=== PATIENT | female | born 1955 | race Caucasian/White ===

== ENCOUNTER 2024-03-24 05:49 | Observation (INO) ==
[~2024-03-24 05:49] MED LIST: Metoclopramide 5 MG/ML VIAL (10 mg) IV PRN; NS 0.45% 1000 ml BAG 1,000 ML IV SCH; Naloxone 0.4 mg VIAL 0.4 mg/ml 1 ml VIAL IV PRN; Ondansetron 4 mg VIAL 2 MG/ML 2 ml VIAL IV PRN; fentaNYL 100 mcg/2 ml 50 MCG/ML VIAL IV PRN
[2024-03-24] MEDS ORDERED: Tranexamic Acid 1 GM/100ML BAG 2,000 MG/200 ML BAG IV ONE (06:25)
[2024-03-24] MEDS ORDERED: ceFAZolin 2 GM PREMIX 2 GM/50 ML BAG ONE (06:25)
[2024-03-24 06:33] LABS: Rapid COVID-19 Molecular Undetected (Undetected)
[2024-03-24] MEDS: Lactated Ringers 1000 ml BAG 1,000 ML IV SCH ×2 (06:40→11:30)
[2024-03-24] MEDS: Scopolamine 1 mg/72hr PATCH TRANSDERM ONE (06:41)
[2024-03-24] MEDS: Buffered Lidocaine 1% SYRIN 1 ml INTRADERM ONE (06:42)
[2024-03-24] MEDS ORDERED: Midazolam 2 mg/2 ml VIAL 1 mg/ml 2 ml VIAL (2 mg) ONE (07:08)
[2024-03-24] MEDS ORDERED: ROPIVACAINE 5 MG/ML 30 ML BTL (0.5%) ONE ×2 (07:09)
[2024-03-24] MEDS ORDERED: Lidocaine 2% PF 5 ML VIAL ONE (07:17)
[2024-03-24] MEDS ORDERED: Phenylephrine IV 10 MG/ML 1 ml VIAL ONE (07:17)
[2024-03-24] MEDS ORDERED: Dexamethasone IV 4 MG/ML VIAL 1 ml VIAL ONE (09:10)
[2024-03-24] MEDS ORDERED: Ondansetron 4 mg VIAL 2 MG/ML 2 ml VIAL ONE (09:10)
[2024-03-24] MEDS ORDERED: Propofol 10 MG/ML 20 ML BTL ONE (09:29)
[2024-03-24] MEDS ORDERED: Ondansetron 4 mg VIAL 2 MG/ML 2 ml VIAL IV PRN (10:00)
[2024-03-24] MEDS ORDERED: Morphine 2 MG/ML SYRINGE IV PRN (10:00)
[2024-03-24] MEDS ORDERED: Calcium Carb (TUMS) 500 mg CHEW TAB PO PRN (10:00)
[2024-03-24] MEDS ORDERED: Magnesium Hydroxide LIQ 30 ML UDC PO PRN (10:00)
[2024-03-24] MEDS ORDERED: Ondansetron ODT 4 mg TAB 4 MG TAB PO PRN (10:00)
[2024-03-24] MEDS ORDERED: Lactulose 30 ml UDC PO PRN (10:00)
[2024-03-24] MEDS: Acetaminophen IV 1 GM/100ML 1,000 MG/100 ML BAG IV ONE (11:26)
[2024-03-24] MEDS: ceFAZolin 2 GM PREMIX 2 GM/50 ML BAG IVPB SCH (15:53)
[2024-03-24 15:59] VITALS: BP 125/62
[2024-03-24] MEDS ORDERED: Magnesium Hydroxide LIQ 30 ML UDC PO SCH (21:00)
[2024-03-25] MEDS ORDERED: Vitamin THERAPEUTIC TAB PO SCH (09:00)
== END 2024-03-24 17:10 | disposition home or self-care (01) ==
LOC: OR 05:49 → SSU 05:49
PROVIDERS: ADMIT Orthopaedic Surgery Adult Reconstructive Orthopaedic Surgery; ATTEND Orthopaedic Surgery Adult Reconstructive Orthopaedic Surgery